=== PATIENT | female | born 1990 | race Caucasian/White ===

== ENCOUNTER 2020-01-16 16:47 | Outpatient (CLI) | payer OTHER, SELFPAY ==
--- NOTE | ~2020-01-16 | XR_ITS ---
XR ankle LT min 3V, XR foot LT min 3V 01/16/2020 17:16 Indication: Left foot and ankle pain Procedure: 4 views left ankle and foot Comparison: No prior studies for comparison. Findings: There is a healed stress fracture of the second metatarsal. No acute fracture or traumatic malalignment. Ankle mortise intact. Talar dome is normal. No significant soft tissue abnormality. Impression: 1: No acute bone or joint abnormality. 2: Healed stress fracture left second metatarsal. Reviewed, dictated and finalized at location A. Impression: 1: No acute bone or joint abnormality. 2: Healed stress fracture left second metatarsal. Impression: 1: No acute bone or joint abnormality. 2: Healed stress fracture left second metatarsal.
== END 2020-01-16 16:48 | disposition home or self-care (01) ==
PROVIDERS: PCP Physician Assistant; Visit Provider Physician Assistant
DX: S93.402A Sprain of unspecified ligament of left ankle, initial encounter (principal); X58.XXXA Exposure to other specified factors, initial encounter
CPT/HCPCS: 73610; 73630